=== PATIENT | male | born 1970 | race Caucasian/White ===

== ENCOUNTER 2016-11-24 14:05 | Day surgery (SDC) | payer OTHER ==
[~2016-11-24] VITALS: Ht 167.6 cm; Wt 72.5 kg
[2016-11-24 14:32] VITALS: Ht 167.6 cm; Wt 72.5 kg
[2016-11-24] MEDS ORDERED: NO MEDS (14:35)
--- NOTE | 2016-11-24 15:14 | OPPN ---
Date/Time of Note Date/Time of Note DATE: 11/24/16 TIME: 15:10 Operative Report Preoperative Diagnosis family h/o colon ca Postoperative Diagnosis NORMAL COLONOSCOPY Operation/Procedure Performed COLONOSCOPY Surgeon see signature line acute care certified nursing assistant NONE Anesthesia: moderate sedation Estimated blood loss: none Transfusion Required none Specimen NONE Grafts/Implants none Complications none RUTH HDZ MD Nov 24, 2016 15:14
[2016-11-24] MEDS ORDERED: MIDAZOLAM 1 MG/ML 2 ML INJ ONE ×2 (15:15→15:16)
[2016-11-24] MEDS ORDERED: FENTAnyl 50 MCG/ML VIAL ONE (15:16)
[2016-11-24] MEDS ORDERED: MEPERIDINE 50 MG INJ ONE (15:17)
--- NOTE | 2016-11-26 03:58 | GILP ---
DATE OF PROCEDURE: PREOPERATIVE DIAGNOSIS: Family history of CA. PROCEDURE DONE: Colonoscopy. POSTOPERATIVE DIAGNOSIS: Normal colonoscopy, except tortuous left colon. DESCRIPTION OF PROCEDURE: After obtaining informed consent, the patient was sedated with 4 mg IV Ve rsed, 100 mcg of fentanyl, 25 mg of IV Demerol and I advanced an Olympus video colonoscope all the w ay to cecum. Cecum, ascending colon, transverse colon, descending colon, sigmoid colon unremarkable , except sigmoid colon was tortuous. Rectum is normal. Patient had no complications. Total time for moderate sedation is 15 minutes. Repeat colonoscopy recommended on this patient is 5 years. Dictated By: RUTH CHRISTINE Conf#: [id number] DID#: [id number]
== END 2016-11-24 18:46 | disposition home or self-care (01) ==
LOC: GIL 14:05
PROVIDERS: ATTEND Internal Medicine
DX: Z12.11 Encounter for screening for malignant neoplasm of colon (principal); Z80.0 Family history of malignant neoplasm of digestive organs; Z80.3 Family history of malignant neoplasm of breast; Q43.8 Other specified congenital malformations of intestine
CPT/HCPCS: 45378; J2175; J2250; J3010; Z7610